=== PATIENT | female | born 1955 | race Caucasian/White ===

== ENCOUNTER 2022-02-02 10:20 | Day surgery (SDC) | payer OTHER ==
[2022-02-01 18:28] VITALS: BMI 21.5
[2022-02-02 14:41] VITALS: TEMP 97.9
[2022-02-02 14:43] VITALS: BP 110/57; PULSE 81; RESP 18
== END 2022-02-02 13:25 | disposition home or self-care (01) ==
LOC: FASU-ENDO 10:20
PROVIDERS: ATTEND Internal Medicine
PROC: 0DBN8ZX Excision of Sigmoid Colon, Via Natural or Artificial Opening Endoscopic, Diagnostic (ICD-10-PCS; 2022-02-02)
PROC: 0DBM8ZX Excision of Descending Colon, Via Natural or Artificial Opening Endoscopic, Diagnostic (ICD-10-PCS; principal; 2022-02-02 12:16)
DX: Z12.11 Encounter for screening for malignant neoplasm of colon (principal); Z86.010 Personal history of colon polyps; K63.5 Polyp of colon; K64.8 Other hemorrhoids
CPT/HCPCS: 88305-TC